=== PATIENT | female | born 1985 | race Hispanic/Latino ===

== ENCOUNTER 2017-04-25 19:24 | Emergency (ER) | payer OTHER ==
[2017-04-25 20:11] LABS: Bilirubin Negative (Negative); Blood, Urine Trace (Negative); Clarity Slightly Cloudy (Clear); Glucose, Urine (Dipstick) Negative (Negative); Leukocyte Negative (Negative); Nitrite Negative (Negative); Protein, Urine (Dipstick) 30 mg/dL (Neg-Trace); Urobilinogen 0.2 mg/dL (0.2-1.0)
[2017-04-25 20:12] LABS: Specific Gravity, Urine 1.027 (1.002-1.036)
[2017-04-25] MEDS ORDERED: Ketorolac Tromethamine 30 MG/ML VIAL ONE (20:14)
[2017-04-25] MEDS ORDERED: Ondansetron PF 4 MG/2 ML Vial ONE (20:15)
[2017-04-25 20:19] LABS: Pregnancy Test - Urine (BHCG) Negative (Negative); Pregu Control Background? CLEAR/WHITE (CLR/WHITE); Pregu Control Bar Appear? YES (CONTROL BAR); Specific Gravity 1.027 (1.002-1.036)
[2017-04-25 20:21] LABS: WBC/HPF 0-3 HPF (0-3)
[2017-04-25 20:22] LABS: Bacteria/HPF 1+ HPF (None Seen); Crystals/HPF 1+ CA OXALATE HPF (Negative); Hyaline Casts/LPF 0-3 HYALINE CAST LPF (0-3 Hyaline)
[2017-04-25 20:24] LABS: #Basophils 0.1 thou/uL (0.0-0.2); #Eosinphils 0.1 thou/uL (0.0-0.7); #Lymphocytes 4.2 thou/uL (1.20-3.40); #Monocytes 0.7 thou/uL (0.11-0.59); %Lymphocytes 37.3 % (21.0-51.0); %Monocytes 6.4 % (0.0-10.0); %Neutrophils 54.3 % (42.0-75.0); Hemoglobin 12.5 g/dL (12.0-16.0); Mean Corpuscular HGB CONC 32.6 g/dL (32.0-36.0); Mean Corpuscular Hemoglobin 29.2 pg (27.0-31.0); Mean Corpuscular Volume 89.6 fl (81.0-99.0); Platelet Count 249 thou/uL (130-400); RBC Distribution Width 12.8 % (11.5-14.5); Red Blood Cell (RBC) Count 4.29 mill/uL (4.20-5.40); White Blood Cell (WBC) Count 11.1 thou/uL (4.8-10.8)
[2017-04-25 20:37] LABS: ALT (SGPT) 12 U/L (8-55); AST (SGOT) 13 U/L (5-34); Albumin 3.9 g/dL (3.5-5.0); Alkaline Phosphatase 105 U/L (40-150); Anion Gap 11 mmol/L (10-20); BUN (Urea Nitrogen) 10 mg/dL (7.0-18.7); Calc. Creatinine Clearance 0 mL/min (70-130); Calcium 8.9 mg/dL (7.8-10.44); Carbon Dioxide 24 mmol/L (22-29); Chloride 107 mmol/L (98-107); Estimated GFR-MDRD Greater than 90; Globulin 2.7 g/dL (2.4-3.5); Glucose 88 mg/dL (70-105); Potassium 3.8 mmol/L (3.5-5.1); Protein, Total 6.6 g/dL (6.0-8.3); Sodium 138 mmol/L (136-145)
[2017-04-25 20:46] LABS: Bilirubin, Total 0.2 mg/dL (0.2-1.2)
--- NOTE | 2017-04-25 21:13 | CT ---
CT ABDOMEN AND PELVIS NONCONTRAST 04/25/17 INDICATION: Right flank pain. FINDINGS: Mild volume loss is seen at the lung bases. There is nonobstructing left nephrolithiasis. Urinary sudheer dder is decompressed. Left adnexal cyst formation is seen. No free air or obvious ascites. Solid abdo enedelia organs, bowel, lymph nodes and vasculature are limited in assessment by noncontrast technique. Imaged osseous structures are nonacute. There is mild colonic diverticulosis. IMPRESSION: Nonobstructing left nephrolithiasis. Evaluation otherwise limited on the basis of noncontrast technique. POS: [facility]
== END 2017-04-25 21:30 | disposition home or self-care (01) ==
LOC: SCSER 19:24
DX: R10.9 Unspecified abdominal pain (principal); Z87.442 Personal history of urinary calculi; Z87.891 Personal history of nicotine dependence
CPT/HCPCS: 74176; 80053; 81003; 81015; 81025; 85025; 87086; 96361; 96374; 96375; J1885; J2405

== ENCOUNTER 2017-05-09 11:22 | Outpatient (CLI) | payer OTHER ==
--- NOTE | 2017-05-09 14:59 | CT ---
NONCONTRAST CT ABDOMEN AND PELVIS: COMPARISON: 04/25/17. CLINICAL HISTORY: Nephrolithiasis, followup. FINDINGS: Imaged lung bases are clear. Redemonstration of punctate, nonobstructing left superior pole renal ca lculus. No right side nephrolithiasis, or evidence of obstructive uropathy. There is retained fecal material throughout the colon. There is a focal hypodensity of the left adnexa, grossly stable by n oncontrast technique. The solid abdominal viscera, bowel, lymph nodes, and vascular are limited in a ssessment on the basis of noncontrast imaging. No acute osseous pathology visualized. There are sta ble-appearing calcifications within the pelvis which indicate phleboliths. IMPRESSION: 1. Redemonstration of nonobstructing left nephrolithiasis. 2. No significant interval detrimental change evident. 3. Grossly stable hypodensity of the left adnexa which may be on the basis of physiologic cyst. If there is need for further evaluation, followup pelvic ultrasound may be performed as necessary. POS: [facility]
== END 2017-05-09 11:23 | disposition home or self-care (01) ==
LOC: CT 11:22
PROVIDERS: ATTEND Family Medicine
DX: N20.0 Calculus of kidney (principal)
CPT/HCPCS: 74176

== ENCOUNTER 2017-06-16 04:33 | Emergency (ER) | payer OTHER ==
[2017-06-16 04:57] LABS: #Basophils 0.1 thou/uL (0.0-0.2); #Lymphocytes 2.3 thou/uL (1.20-3.40); #Monocytes 0.5 thou/uL (0.11-0.59); #Neutrophils 7.2 thou/uL (1.40-6.50); %Basophils 0.8 % (0.0-1.0); %Eosinophils 0.2 % (0.0-10.0); %Lymphocytes 22.4 % (21.0-51.0); %Monocytes 5.3 % (0.0-10.0); %Neutrophils 71.4 % (42.0-75.0); Hemoglobin 14.1 g/dL (12.0-16.0); Mean Corpuscular Hemoglobin 29.6 pg (27.0-31.0); Mean Corpuscular Volume 89.7 fl (81.0-99.0); Mean Platelet Volume 7.1 fL (7.4-10.4); Platelet Count 261 thou/uL (130-400); RBC Distribution Width 14.1 % (11.5-14.5); Red Blood Cell (RBC) Count 4.77 mill/uL (4.20-5.40)
[2017-06-16] MEDS ORDERED: Ondansetron HCl/PF 4 MG/2 ML Vial ONE (05:01)
[2017-06-16 05:07] LABS: BHCG - Serum Negative (NEGATIVE); Pregs Control Background? CLEAR/WHITE (CLR/WHITE); Pregs Control Bar Appear? YES (CONTROL BAR)
[2017-06-16 05:12] LABS: ALT (SGPT) 23 U/L (8-55); AST (SGOT) 17 U/L (5-34); Albumin 4.1 g/dL (3.5-5.0); Alkaline Phosphatase 85 U/L (40-150); Anion Gap 15 mmol/L (10-20); BUN (Urea Nitrogen) 9 mg/dL (7.0-18.7); Bilirubin, Total 0.6 mg/dL (0.2-1.2); Calc. Creatinine Clearance 0 mL/min (70-130); Calcium 8.9 mg/dL (7.8-10.44); Carbon Dioxide 23 mmol/L (22-29); Chloride 106 mmol/L (98-107); Estimated GFR-MDRD Greater than 90; Globulin 3.1 g/dL (2.4-3.5); Glucose 128 mg/dL (70-105); Potassium 3.8 mmol/L (3.5-5.1); Protein, Total 7.2 g/dL (6.0-8.3); Sodium 140 mmol/L (136-145)
[2017-06-16] MEDS ORDERED: Loperamide HCl 2 MG CAP ONE (05:22)
== END 2017-06-16 06:00 | disposition home or self-care (01) ==
LOC: SCSER 04:33
DX: K52.9 Noninfective gastroenteritis and colitis, unspecified (principal); Z87.442 Personal history of urinary calculi; Z87.891 Personal history of nicotine dependence
CPT/HCPCS: 80053; 83605; 83690; 84703; 85025; 96361; 96374; J2405

== ENCOUNTER → 2017-11-05 | Day surgery (SDC) | payer OTHER ==
[2017-10-28 10:38] VITALS: BMI 31.8
[~2017-11-05] MED LIST: Fentanyl 100 MCG/2 ML VIAL ONE; HYDROcodone/Acetaminophen 5/325 mg Tablet ONE; Iothalamate Meglumine 60% 50 ML VIAL FS ONE; Levofloxacin 500 mg/D5W 100 ml Premix Bag ONE; Midazolam HCl 2 mg/2 ml Vial ONE; SUGAMMADEX SODIUM 200 MG/2 ML VIAL ONE
--- NOTE | 2017-11-05 11:08 | RAD ---
KUB: History: Pre op. Renal calculus. Comparison: 10-23-17 CT examination. FINDINGS: The bowel gas pattern appears nonobstructive. I do not see any definitive renal calculi. The left ure teral stent appears to be in good position. I do not see a definite ureteral calculus. There are calc ifications in the pelvis which appear to represent phleboliths. IMPRESSION: Left ureteral stent in place. No definite renal or ureteral calculi. POS: [facility]
--- NOTE | 2017-11-05 14:16 | OP ---
DATE OF PROCEDURE: 11/05/2017 PREOPERATIVE DIAGNOSES: A 32-year-old female with migration of left renal calculi to left distal ureter uretrovesical junction, presented with flank pain , suspicious urinary tract infection component. POSTOPERATIVE DIAGNOSES: A 32-year-old female with migration of left renal calculi to left distal ureter uretrovesical junction, presented with flank pain , suspicious urinary tract infection component. PROCEDURE: Cystoscopy, left 6 x 24 double-J ureteral stent exchange with dangler, rigid ureteroscopy, basket extraction of stone. SURGEON: Carmencita Short D.O. ANESTHESIA: General. COMPLICATIONS: None apparent. SPECIMEN: Stone for chemical analysis. 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 She had a CT scan done earlier this year demonstrating left nonobstructing stone. She presented to the emergency room due to distal migration of the stone with flank pain. Urinalysis suspicious for UTI. With repeat urine culture negative, she presents for ureteroscopy, laser lithotripsy , stone extraction. Risks and complications including, but not limited to, bleeding, pain, infection, urosepsis, injury to ureter, bladder, kidney, possible secondary procedure was reviewed. All questions were answered to her satisfaction and she desired to proceed. DESCRIPTION OF THE PROCEDURE: After an informed consent is signed, the patient was taken to the operating room, placed in a dorsal lithotomy position with the genital area prepped and draped in the usual surgical sterile fashion. A 21- Armenian cystoscope was utilized. Upon entering the bladder, clear urine was noted. The ureteral stent that was preexisting was removed to the level of the meatus and a 0.35 sensor wire was passed through the stent to the upper pole. At this time, a rigid ureteroscope was then passed. Since she had an indwelling stent, she was passively dilated. I was able to pass a rigid ureteroscope without trauma and able to visualize the stone at the level of the S3 ureter. A Zero Tip nitinol basket was utilized to extract the stone atraumatically. She tolerated the procedure well. A 6 x 24 double-J ureteral stent was placed with dangler taped to the patient's pubic symphysis. She is discharged with ciprofloxacin for 7 days, Ditropan 5 mg 1 p.o. q.8 hours p.r.n. bladder spasm, [place] number [id number], Coljimi p.r.n. She will follow up with me next for stent pull on danbladimir. HUMA
--- NOTE | 2017-11-05 15:26 | RAD ---
RETROGRADE PYELOGRAM: Indication: Single image from cystoscopy procedure is presented during IV retrograde procedure. FINDINGS/IMPRESSION: A single image is presented and demonstrates a double pigtail left ureteral stent in place. POS: [facility]
== END ==
LOC: SDC 10:24
PROVIDERS: ATTEND Urology
PROC: 0T778DZ Dilation of Left Ureter with Intraluminal Device, Via Natural or Artificial Opening Endoscopic (ICD-10-PCS; principal; 2017-11-05)
PROC: 0TC78ZZ Extirpation of Matter from Left Ureter, Via Natural or Artificial Opening Endoscopic (ICD-10-PCS; principal; 2017-11-05)
DX: N20.2 Calculus of kidney with calculus of ureter (principal); Z88.2 Allergy status to sulfonamides; Z88.8 Allergy status to other drugs, medicaments and biological substances
CPT/HCPCS: 74018; 74420; 82365; 88300; 96374; C1758; C1769; J0131; J1956; J2250; J3010; Q9961